=== PATIENT | female | born 1985 | race Caucasian/White ===

== ENCOUNTER 2020-01-12 01:00 | Outpatient (CLI) | payer OTHER, SELFPAY ==
[2020-01-12 19:21] LABS: SARS-CoV-2 RNA PCR Negative
== END 2020-01-12 01:01 | disposition home or self-care (01) ==
LOC: ANHCOVIDDT 01:01
PROVIDERS: PCP Nurse Practitioner Family; Visit Provider Plastic Surgery
DX: Z01.812 Encounter for preprocedural laboratory examination (principal); Z11.59 Encounter for screening for other viral diseases
CPT/HCPCS: 87635; 93005; C9803; U0003

== ENCOUNTER 2020-01-12 10:25 | Outpatient (CLI) | payer OTHER, SELFPAY ==
--- NOTE | 2020-01-12 10:28 | ECG_ITS ---
Measurements Intervals [place] Rate: 79 P: 75 CO: 146 QRS: 53 QRSD: 103 T: 52 QT: 375 QTc: 431 Interpretive Statements SINUS RHYTHM POSSIBLE RIGHT ATRIAL ENLARGEMENT DELAYED PRECORDIAL R/S TRANSITION BORDERLINE ECG Electronically Signed On 01-12-2020 10:50:56 CDT by Pranav Evans D.O.
== END 2020-01-12 10:26 | disposition home or self-care (01) ==
LOC: ANHSURGERY 10:28
PROVIDERS: PCP Nurse Practitioner Family; Visit Provider Plastic Surgery
DX: I10 Essential (primary) hypertension (principal); R94.31 Abnormal electrocardiogram [ECG] [EKG]
CPT/HCPCS: 87635; 93005; C9803; U0003

== ENCOUNTER 2020-01-14 02:52 | Day surgery (SDC) | payer OTHER, SELFPAY ==
[2019-12-17 09:38] VITALS: BMI 21.1
--- NOTE | 2020-01-13 20:41 | HP_ITS ---
DATE OF SERVICE: 01/14/2020 PREOPERATIVE DIAGNOSES: Bilateral carpal tunnel and cubital tunnel syndrome. HISTORY OF PRESENT ILLNESS: The patient is 34. She was referred by Dr. Ozzie Bradley, a neurologist with a nerve conduction test from 01/04/2019 indicating the above. She says both hands are equally involved. The left may include more symptoms of cubital tunnel syndrome. She has quite a bit of pain, radiates up to her elbows. This has been going on for 2 years. She has tried splinting and gloves, found these rarely helpful. She will most likely require surgery at all 4 sites, and on this occasion we are bringing her for right open carpal tunnel release under MAC anesthetic. She is aware of the possibility of hematoma, infection, scarring, nerve injury, tendon injury, anesthetic complications, and she would like to proceed. PAST MEDICAL HISTORY: Chronic ailments include ADHD, anxiety, insomnia, and rheumatoid arthritis. ALLERGIES: SHE HAS AN ALLERGY TO IMITREX. CURRENT MEDICATIONS: Include lisinopril, Adderall, Flexeril, amitriptyline, buspirone, leflunomide, hydroxychloroquine, diclofenac, tramadol, Chantix. PAST SURGICAL HISTORY: Prior surgeries included tubal ligation in 2013, tonsillectomy, endometrial ablation. REVIEW OF SYSTEMS: Includes all of the above. FAMILY HISTORY: Noncontributory. SOCIAL HISTORY: She is a smoker. She lives in [place]. She does not list employment. PHYSICAL EXAMINATION: GENERAL: She is 5 feet 10 inches, weighs 149 pounds. She is alert and informative. HEENT: Unremarkable. CHEST: Clear to auscultation. HEART: Regular rate and rhythm by palpation. ABDOMEN: Soft, nontender. EXTREMITIES: Reveals on the right thenar tenderness, Tinel's at the wrist, provocative forearm pain. Tinel's at the elbow with subluxation of the ulnar nerve, positive wrist compression test. DIAGNOSIS: Right carpal tunnel syndrome. PLAN: Right open carpal tunnel release under MAC anesthetic. D I MT: Gayle FRANK
[2020-01-14 07:15] VITALS: BMI 20.5
[2020-01-14 07:42] VITALS: BP 123/75; PULSE 107; RESP 20; TEMP 36.1; O2SAT 100
[2020-01-14] MEDS: LACTATED RINGERS 1,000 ML 30 ML IV CONT (07:45)
--- NOTE | 2020-01-14 08:07 | WPDANESEPPF ---
Anes - Initial Pre Proc Eval Procedure: Operation Date: 01/14/20 09:00 Proposed Procedures p Right Open Carpal Tunnel Release - Deyvi Antunez MD Date/Time: 01/14/20 08:07 Surgeon: Deyvi nAtunez MD Pre Op Diagnosis: right carpal tunnel syndrome Patient Data Age: 34 Gender: F Height: 5 ft 10 in Weight: 65 kg Last Vital Signs Temp 96.9 F L 01/14/20 07:42 Pulse 107 H 01/14/20 07:42 Resp 20 01/14/20 07:42 BP 123/75 01/14/20 07:42 Pulse Ox 100 01/14/20 07:42 Allergies Allergy/AdvReac Type Severity Reaction Status Date / Time sumatriptan [From Imitrex] AdvReac Vomiting Verified 01/14/20 07:43 Home Medications Medication Instructions Recorded Confirmed Type amitriptyline 125 mg PO HS 12/17/19 01/14/20 History buspirone 15 mg PO TID 12/17/19 01/14/20 History cyclobenzaprine 10 mg PO TID PRN 12/17/19 01/14/20 History dextroamphetamine-amphetamine 10 mg PO DAILY 12/17/19 01/14/20 History dextroamphetamine-amphetamine 30 mg PO DAILY 12/17/19 01/14/20 History diclofenac sodium 75 mg PO BID 12/17/19 01/14/20 History hydroxychloroquine 200 mg PO BID 12/17/19 01/14/20 History leflunomide 20 mg PO DAILY 12/17/19 01/14/20 History lisinopril 5 mg PO DAILY 12/17/19 01/14/20 History multivitamin 1 tablet PO DAILY 12/17/19 01/14/20 History tramadol 50 mg PO Q6H PRN 12/17/19 01/14/20 History varenicline [Chantix] 1 mg PO BID 12/17/19 01/14/20 History Patient hx anesthesia problems: none Family hx anesthesia problems: none PMFSH Past Medical History Medical History (Updated 01/14/20 @ 08:06 by Bry Orta MD) ADHD (attention deficit hyperactivity disorder) Anxiety Hypertension Anes - Eval Final PreProcedure Day of Procedure 01/14/20 08:07 Patient weight: normal Heart: regular rate and rhythm Lungs: clear to auscultation Airway: Mallampati scale class II Neurological: alert and oriented Last oral intake: >/= 8 hours ASA classification: II Emergent: no Anesthetic plan: proceed Anesthesia type and monitoring: general GIVS and standard monitoring Informed Consent: The patient's anesthetic plan and its attendant risks and benefits were discussed with the patient/family/POA. Questions were solicited and answers provided to the satisfaction of the patient/family/POA.
[2020-01-14] MEDS: ceFAZolin 2 GM/D5W 50 ML 2 GM/50 ML BAG IVPB (09:00)
--- NOTE | 2020-01-14 09:25 | P.OPB_ITS ---
Procedure Note - Brief Procedure Note - Brief Date of procedure: 01/14/20 Pre-op diagnosis: right carpal tunnel syndrome Post-op diagnosis: same Procedure performed: R OCTR Anesthesia: MAC Surgeon: Deyvi Antunez MD Progressive Care Unit Registered Nurse: Fritz Estimated blood loss (mL): 0 Tourniquet time (min): 4 Drains: No Packing: No Pathology: none sent Condition: stable Disposition: PACU
[2020-01-14] MEDS: LIDO 1%/EPINEPHRINE 1:100,000 20 ML VIAL 5 ML INFILTRATE (09:28)
[2020-01-14 09:30] VITALS: BP 96/56; PULSE 89; RESP 14; TEMP 36.6; O2SAT 99
--- NOTE | 2020-01-14 09:34 | PM.PROC ---
Procedure Note - Detailed Date of procedure: 01/14/20 Pre-op diagnosis: right carpal tunnel syndrome Post-op diagnosis: same Procedure performed: Right open carpal tunnel release Description of procedure: The appropriate hand was marked in the holding area. The patient was taken to the operating room and placed supine on the operating table. A time-out was held and confirmed. The patient was given sedation anesthetic. The extremity was prepped and draped in usual fashion. The site was remarked and infiltrated with 1% lidocaine with epinephrine. The tourniquet was inflated to 250 mmHg. The incision was made as marked. Dissection was carried bluntly through the subcutaneous tissue to the palmar fascia. This and the carpal ligament were incised with a 15. Blade. Under 3 point retraction the ligament was divided distally and proximally for a complete release. There was no unusual anatomy. The skin was closed with interrupted 5 0 nylon sutures. The usual soft bulky bandage was applied. The tourniquet was released. The patient is discharge with instructions for wound care and follow-up. She has a prescription for hydrocodone 5/325 number 10. She has tramadol at home as well. Surgeon: Deyvi Antunez MD
[2020-01-14 09:55] VITALS: BP 104/64; PULSE 89; RESP 15
[2020-01-14 10:14] VITALS: BP 99/63; PULSE 85; RESP 15
== END 2020-01-14 10:28 | disposition home or self-care (01) ==
PROVIDERS: PCP Nurse Practitioner Family; Visit Provider Plastic Surgery
PROC: (CPT 64721; principal; 2020-01-14 09:00)
DX: G56.01 Carpal tunnel syndrome, right upper limb (principal); I10 Essential (primary) hypertension; F90.9 Attention-deficit hyperactivity disorder, unspecified type; F41.9 Anxiety disorder, unspecified
CPT/HCPCS: 64721; A9270; J0690; J1100; J2250; J2405; J2704; J3010; J7120

== ENCOUNTER 2020-02-09 00:36 | Outpatient (CLI) | payer OTHER, SELFPAY ==
[2020-02-09 20:23] LABS: SARS-CoV-2 RNA PCR Negative
== END 2020-02-09 00:37 | disposition home or self-care (01) ==
LOC: ANHCOVIDDT 00:36
PROVIDERS: PCP Nurse Practitioner Family; Visit Provider Plastic Surgery
DX: Z01.812 Encounter for preprocedural laboratory examination (principal); Z20.828 Contact with and (suspected) exposure to other viral communicable diseases
CPT/HCPCS: 87635; C9803; U0003

== ENCOUNTER 2020-02-11 01:25 | Day surgery (SDC) | payer OTHER, SELFPAY ==
[2020-01-28 13:59] VITALS: BMI 21.1
--- NOTE | 2020-02-11 07:12 | WPDHPUPDATE1 ---
History and Physical Update Update Date/Time: 02/11/20 07:12 History and Physical has been reviewed, including an updated exam of the patient. There are NO changes in the patient's condition. Risks, benefits, and alternatives have been discussed and questions answered. Patient agrees to proceed with procedure.
[2020-02-11 08:08] VITALS: BP 109/71; PULSE 71; RESP 14; TEMP 37.2; O2SAT 100
[2020-02-11] MEDS: LACTATED RINGERS 1,000 ML 30 ML IV CONT (08:10)
--- NOTE | 2020-02-11 08:47 | WPDANESEPPF ---
Anes - Initial Pre Proc Eval Procedure: Operation Date: 02/11/20 09:30 Proposed Procedures p Left Ulnar Neuroplasty at Elbow - Deyvi Antunez MD Date/Time: 02/11/20 08:47 Surgeon: Deyvi Antunez MD Pre Op Diagnosis: left cubital tunnel syndrome Patient Data Age: 34 Gender: F Height: 5 ft 10 in Weight: 62 kg Last Vital Signs Temp 98.9 F 02/11/20 08:08 Pulse 71 02/11/20 08:08 Resp 14 02/11/20 08:08 BP 109/71 02/11/20 08:08 Pulse Ox 100 02/11/20 08:08 Allergies Allergy/AdvReac Type Severity Reaction Status Date / Time sumatriptan [From Imitrex] AdvReac Intermediate Vomiting Verified 02/11/20 07:52 Home Medications Medication Instructions Recorded Confirmed Type Chantix 1 mg PO BID 12/17/19 02/11/20 History amitriptyline 125 mg PO HS 12/17/19 02/11/20 History buspirone 15 mg PO TID 12/17/19 02/11/20 History cyclobenzaprine 10 mg PO TID PRN 12/17/19 02/11/20 History dextroamphetamine-amphetamine 10 mg PO DAILY 12/17/19 02/11/20 History dextroamphetamine-amphetamine 30 mg PO DAILY 12/17/19 02/11/20 History diclofenac sodium 75 mg PO BID 12/17/19 02/11/20 History hydroxychloroquine 200 mg PO BID 12/17/19 02/11/20 History leflunomide 20 mg PO DAILY 12/17/19 02/11/20 History lisinopril 5 mg PO DAILY 12/17/19 02/11/20 History multivitamin 1 tablet PO DAILY 12/17/19 02/11/20 History tramadol 50 mg PO Q6H PRN 12/17/19 02/11/20 History Patient hx anesthesia problems: none Family hx anesthesia problems: none PMFSH Past Medical History Medical History (Updated 01/14/20 @ 08:06 by Bry Orta MD) ADHD (attention deficit hyperactivity disorder) Anxiety Hypertension Social History Social History Smoking packs per day: 0.75 Smoking cigarettes per day: 15.0 Years smoked: 25 Smoking pack-years: 18.75 Smoking status: Current some day smoker Additional smoking assessment comments: REPORTS USED TO SMOKE 1 PPD- CUTTING DOWN TO 0.5-0.75PPD Alcohol intake: current Drinks per week: 2 Spiritual care concerns: No Anes - Eval Final PreProcedure Day of Procedure 02/11/20 08:47 Patient weight: normal Heart: regular rate and rhythm Lungs: clear to auscultation Airway: Mallampati scale class II Neurological: alert and oriented Last oral intake: >/= 8 hours ASA classification: II Emergent: no Anesthetic plan: proceed Anesthesia type and monitoring: general GIVS and standard monitoring Informed Consent: The patient's anesthetic plan and its attendant risks and benefits were discussed with the patient/family/POA. Questions were solicited and answers provided to the satisfaction of the patient/family/POA.
[2020-02-11] MEDS: LIDO 1%/EPINEPHRINE 1:100,000 20 ML VIAL 7 ML INFILTRATE (10:04)
--- NOTE | 2020-02-11 11:06 | PM.OP ---
Procedure Note - Brief Procedure Note - Brief Date of procedure: 02/11/20 Pre-op diagnosis: left cubital tunnel syndrome Post-op diagnosis: same Procedure performed: L anterior transposition of the ulnar nerve at the elbow. Anesthesia: MAC Surgeon: Deyvi Antunez MD Estimated blood loss (mL): 5 Tourniquet time (min): 22 Drains: No Packing: No Pathology: none sent Complications: No immediate complications Condition: stable Disposition: same day
[2020-02-11 11:11] VITALS: BP 108/75; PULSE 53; RESP 12; O2SAT 100
--- NOTE | 2020-02-11 11:29 | PM.PROC ---
Procedure Note - Detailed Date of procedure: 02/11/20 Pre-op diagnosis: left cubital tunnel syndrome Post-op diagnosis: same Procedure performed: Left subcutaneous anterior transposition the ulnar nerve at the elbow. Description of procedure: The site was marked in preop. The patient was taken to the operating room and placed supine on the operating table. Time-out was held and confirmed. The extremity was prepped and draped in usual fashion and she was given IV sedation. The site was carefully marked and locally infiltrated with 1% lidocaine with epinephrine. The tourniquet was elevated to 250 mmHg. The elbow was flexed and supported on folded towels. The incision was made as marked and dissection was carried down to the interspace between the medial epicondyle and the olecranon. A thin triceps muscle was identified. The median nerve lay just anterior to the muscle and was easily exposed. Proximally there was no constrictions. Distally it passed through Nieves ligament and this was divided. A division of fascia was continued into the flexor muscle mass. With passive flexion and extension of the elbow the nerve was seen to ride upon the medial epicondyle . We elected to transpose the nerve subcutaneously and it was carefully freed along with an accompanying vein. A fascial flap was created off the medial epicondyle. The nerve was transposed anteriorly and the flap was sutured over the nerve without impinging upon it. The sutures 3-0 Monocryl. With flexion and extension of the elbow the nerve could be seen to translate freely under the flap. The skin flap was closed with intradermal 3-0 Monocryl at the cross galloway shaw and running intradermal 3-0 Monocryl to close the skin. This was done after releasing the tourniquet and ensuring hemostasis. the usual bandage was applied and she is discharged. She has instructions in wound care and follow-up. No prescriptions were written immediately as she has a supply tramadol and hydrocodone at home that she receives on regular basis Surgeon: Deyvi Antunez MD
[2020-02-11 11:30] VITALS: BP 109/68; PULSE 64; RESP 12; O2SAT 100
[2020-02-11 11:50] VITALS: BP 114/73; PULSE 62; RESP 12
== END 2020-02-11 12:02 | disposition home or self-care (01) ==
PROVIDERS: PCP Nurse Practitioner Family; Visit Provider Plastic Surgery
PROC: (CPT 64718; principal; 2020-02-11 09:30)
DX: G56.22 Lesion of ulnar nerve, left upper limb (principal); I10 Essential (primary) hypertension; F90.9 Attention-deficit hyperactivity disorder, unspecified type; F41.9 Anxiety disorder, unspecified; F17.210 Nicotine dependence, cigarettes, uncomplicated
CPT/HCPCS: 64718; A9270; J2250; J2704; J3010; J7120

== ENCOUNTER 2020-03-30 02:09 | Outpatient (CLI) | payer OTHER, SELFPAY ==
[2020-03-30 18:17] LABS: SARS-CoV-2 RNA PCR Negative
== END 2020-03-30 02:10 | disposition home or self-care (01) ==
LOC: ANHCOVIDDT 02:09
PROVIDERS: Anesthesiology; PCP Nurse Practitioner Family; Visit Provider Plastic Surgery
DX: Z01.812 Encounter for preprocedural laboratory examination (principal); Z20.828 Contact with and (suspected) exposure to other viral communicable diseases
CPT/HCPCS: 87635; C9803; U0003

== ENCOUNTER 2020-04-01 03:27 | Day surgery (SDC) | payer OTHER, SELFPAY ==
[2020-03-16 14:49] VITALS: BMI 20.5
--- NOTE | 2020-03-31 14:17 | WPDANESEPPF ---
Anes - Initial Pre Proc Eval Procedure: Operation Date: 04/01/20 07:30 Proposed Procedures p Right Ulnar Neuroplasty At The Elbow - Deyvi Antunez MD Date/Time: 03/31/20 14:17 Surgeon: Deyvi Antunez MD Pre Op Diagnosis: Right Cubital Tunnel Syndrome Patient Data Age: 34 Gender: F Height: 1.78 m Weight: 65 kg Allergies Allergy/AdvReac Type Severity Reaction Status Date / Time sumatriptan [From Imitrex] AdvReac Intermediate Vomiting Verified 04/01/20 06:20 Home Medications Medication Instructions Recorded Confirmed Type Chantix 1 mg PO BID 12/17/19 04/01/20 History amitriptyline 125 mg PO HS 12/17/19 04/01/20 History buspirone 15 mg PO TID 12/17/19 04/01/20 History cyclobenzaprine 10 mg PO TID PRN 12/17/19 04/01/20 History dextroamphetamine-amphetamine 10 mg PO DAILY 12/17/19 04/01/20 History dextroamphetamine-amphetamine 30 mg PO DAILY 12/17/19 04/01/20 History diclofenac sodium 75 mg PO BID 12/17/19 04/01/20 History hydroxychloroquine 200 mg PO BID 12/17/19 04/01/20 History leflunomide 20 mg PO DAILY 12/17/19 04/01/20 History lisinopril 5 mg PO DAILY 12/17/19 04/01/20 History tramadol 50 mg PO Q6H PRN 12/17/19 04/01/20 History Patient hx anesthesia problems: none Family hx anesthesia problems: none [facility] Past Medical History Medical History (Updated 03/31/20 @ 14:18 by Griffin Momin DO) ADHD (attention deficit hyperactivity disorder) Anxiety Hypertension Rheumatoid arthritis Surgical History Surgical History (Updated 03/31/20 @ 14:18 by Griffin Momin DO) History of tonsillectomy History of tubal ligation Social History Social History Smoking packs per day: 0.75 Smoking cigarettes per day: 15.0 Years smoked: 24 Smoking pack-years: 18.00 Smoking status: Current every day smoker Tobacco type: cigarettes Additional smoking assessment comments: REPORTS USED TO SMOKE 1 PPD- CUTTING DOWN TO 0.5-0.75PPD Alcohol intake: current Drinks per week: 1 Substance use type: does not use Living arrangements: with family Gender identity (if verbalized by the patient): Female Spiritual care concerns: No Anes - Eval Final PreProcedure Day of Procedure 03/31/20 14:17 Patient weight: normal Heart: regular rate and rhythm Lungs: clear to auscultation and normal air movement Airway: Mallampati scale class 1 Neurological: alert and oriented Last oral intake: >/= 8 hours ASA classification: II Emergent: no Anesthetic plan: proceed Anesthesia type and monitoring: general GIVS and standard monitoring Informed Consent: The patient's anesthetic plan and its attendant risks and benefits were discussed with the patient/family/POA. Questions were solicited and answers provided to the satisfaction of the patient/family/POA.
[2020-04-01] MEDS: LACTATED RINGERS 1,000 ML 30 ML IV CONT (06:42)
[2020-04-01 06:48] VITALS: BP 117/73; PULSE 88; RESP 16; TEMP 36.8; O2SAT 97
--- NOTE | 2020-04-01 07:08 | WPDHPUPDATE1 ---
History and Physical Update Update Date/Time: 04/01/20 07:08 History and Physical has been reviewed, including an updated exam of the patient. There are NO changes in the patient's condition. Risks, benefits, and alternatives have been discussed and questions answered. Patient agrees to proceed with procedure.
[2020-04-01] MEDS: LIDO 1%/EPINEPHRINE 1:100,000 20 ML VIAL 10 ML INFILTRATE (07:53)
[2020-04-01] MEDS: BACITRACIN OINTMENT 15 GM TUBE 1 APPLIC TOPICAL (07:54)
[2020-04-01 08:33] VITALS: BP 109/68; PULSE 74; RESP 16; TEMP 36.6; O2SAT 100
--- NOTE | 2020-04-01 08:37 | PM.OP ---
Procedure Note - Brief Procedure Note - Brief Date of procedure: 04/01/20 Pre-op diagnosis: Right Cubital Tunnel Syndrome Post-op diagnosis: same Procedure performed: Anterior subcutaneous transposition of the right ulnar nerve at the elbow. Anesthesia: GLMA Surgeon: Deyvi Antunez MD Estimated blood loss (mL): 0 Tourniquet time (min): 44 Drains: No Packing: No Pathology: none sent Complications: No immediate complications Condition: stable Disposition: same day
--- NOTE | 2020-04-01 08:49 | PM.PROC ---
Procedure Note - Detailed Date of procedure: 04/01/20 Pre-op diagnosis: Right Cubital Tunnel Syndrome Post-op diagnosis: same Procedure performed: Anterior subcutaneous transposition of the ulnar nerve at the right elbow. Description of procedure: The right elbow was marked on the patient as she waited and the holding area. She was taken to the operating room and placed supine on the operating table. A time-out was held and confirmed. She was given general anesthesia with LMA. The right upper extremity was prepped and draped in usual fashion. The tourniquet was applied and eventually inflated to 250 mmHg. The site was marked for the incision and locally infiltrated with 1% lidocaine with epinephrine. The nerve clearly subluxed above the medial epicondyle as we examined her. The incision was made as marked and dissection was carried through the subcutaneous tissue to the medial epicondyle. The nerve was identified on top of that and was carefully dissected free. Proximally the nerve lay up against the intermuscular septum and appeared to have a crease in it from that structure. The intermuscular septum was released in the immediate area. Nievse ligament was noted to be completely disrupted. There was no significant compression at the point of the flexor carpi ulnaris fascia. The nerve was transposed anteriorly and was retained in that position with 3-0 Monocryl sutures appended to the superficial fascia on the skin flap and small deep fascial flaps elevated off the medial epicondyle. The elbow could be flexed and extended easily and no compression was applied to the nerve in this position. The skin was closed with interrupted 3-0 intradermal Monocryl sutures and a running intradermal 3-0 Monocryl to close skin. The usual bandage was applied the tourniquet was released. She is discharge instructions in wound care and follow-up and will have prescription for analgesics. She chronically takes tramadol at home. Anesthesia: GLMA Surgeon: Deyvi Antunez MD Estimated blood loss (mL): 2 Tourniquet time (min): 44 Drains: No Packing: No Pathology: none sent Complications: No immediate complications Condition: stable Disposition: same day
[2020-04-01 09:00] VITALS: BP 107/72; PULSE 68; RESP 16
[2020-04-01 09:30] VITALS: BP 111/81; PULSE 74; RESP 18
--- NOTE | 2020-04-01 09:37 | SUR.PHASEII ---
0930; PT AWAKE AND ALERT. C/O PAIN AT 11/01. ASKING FOR PAIN MEDICINE. DR HOBSON NOTIFIED. ORDER GIVEN FOR OXYCODONE.
[2020-04-01] MEDS: oxyCODONE HCL (*CRX) 5 MG TAB IR PO (09:40)
[2020-04-01 10:00] VITALS: BP 107/69; PULSE 80; RESP 16
== END 2020-04-01 10:23 | disposition home or self-care (01) ==
PROVIDERS: PCP Nurse Practitioner Family; Visit Provider Plastic Surgery
PROC: (CPT 64718; principal; 2020-04-01 07:30)
DX: G56.21 Lesion of ulnar nerve, right upper limb (principal); I10 Essential (primary) hypertension; M06.9 Rheumatoid arthritis, unspecified; F90.9 Attention-deficit hyperactivity disorder, unspecified type; F41.9 Anxiety disorder, unspecified; F17.210 Nicotine dependence, cigarettes, uncomplicated
CPT/HCPCS: 64718; A9270; J1100; J2250; J2405; J2704; J3010; J7120

== ENCOUNTER 2020-05-10 02:22 | Outpatient (CLI) | payer OTHER, SELFPAY ==
[2020-05-10 21:22] LABS: SARS-CoV-2 RNA PCR Negative
== END 2020-05-10 02:23 | disposition home or self-care (01) ==
LOC: ANHCOVIDDT 02:22
PROVIDERS: PCP Nurse Practitioner Family; Visit Provider Plastic Surgery
DX: Z01.818 Encounter for other preprocedural examination (principal); Z20.828 Contact with and (suspected) exposure to other viral communicable diseases
CPT/HCPCS: 87635; C9803; U0003

== ENCOUNTER 2020-06-26 01:57 | Outpatient (CLI) | payer OTHER, SELFPAY ==
[2020-06-26 20:09] LABS: SARS-CoV-2 RNA PCR Negative
== END 2020-06-26 01:58 | disposition home or self-care (01) ==
LOC: ANHCOVIDDT 01:57
PROVIDERS: PCP Nurse Practitioner Family; Visit Provider Plastic Surgery
DX: Z01.812 Encounter for preprocedural laboratory examination (principal); Z20.822 Contact with and (suspected) exposure to COVID-19
CPT/HCPCS: C9803; U0003